=== PATIENT | male | born 1970 | race Caucasian/White ===

== ENCOUNTER 2020-05-29 19:17 | Emergency (ER) | payer OTHER ==
[2020-05-29 19:23] VITALS: BP 139/102; PULSE 96; TEMP 97.2; BMI 23.1
--- NOTE | 2020-05-29 19:35 | PDOC ---
History of Present Illness - General Chief Complaint: Laceration Stated Complaint: FELL HIT HEAD, LACERATION Time Seen by Provider: 05/29/20 19:31 History Source: Patient Exam Limitations: No Limitations - History of Present Illness Initial Comments: 05/29/20 21:13 This is a 49-year-old male brought in by EMS for evaluation of a head laceration. Patient said he was out walking his dog when he slipped and fell resulting in a laceration to his posterior occipital area. Patient denies loss of consciousness, headache, nausea, vomiting, confusion or any other complaints Allergies: as per nursing notes Past Medical History: none Social history: Lives with family. No smoking. No alcohol. No illicit drugs. Surgical history: None General: No fevers or chills, no weakness, no weight loss HEENT: No change in vision. No sore throat,. No ear pain, + scalp laceration CardioVascular: no chest discomfort. No shortness of breath Respiratory:No cough, or wheezing. Gastrointestinal: no nausea, vomiting, diarrhea or constipation, No rectal bleeding Genitourinary: No dysuria, hematuria, or frequency Musculoskeletal: No joint or muscle pain or swelling Neurologic: No headache, vertigo, dizziness or loss of consciousness Psychiatric: nor depression Skin: No rashes or easy bruising Endocrine: no increased thirst or abnormal weight change Allergic: no skin or latex allergy All other systems reviewed and normal GENERAL: The patient is awake, alert, and fully oriented, in no acute distress. HEENT:Head is normal with no signs of trauma. Eyes: Pupils equal, round and reactive to light, Ears, and Throat are normal. Neck is supple. No Lymphadenopathy. /Scalp: There is approximately a 3 cm laceration that is irregular in length on the posterior occipital area. There is minimal bleeding. EXTREMITIES:atraumatic, Normal range of motion, no edema. NEUROLOGICAL: Normal speech, normal gait. PSYCH: Normal mood, normal affect. SKIN: Warm, Dry, normal turgor, no rashes or lesions noted. Procedure note laceration repair: Laceration was cleaned And anesthetized with 1% lidocaine no epinephrine. Laceration was irrigated with 100 cc of normal saline using pressure with a Zerowet Laceration was closed with a total of 5 dima Bacitracin and sterile dressing was applied patient tolerated well Assessment and plan: This is a 49-year-old male with a scalp laceration that was closed with dima. Patient had no other complaints. Patient is otherwise healthy and discharged home. Past History - Medical History Allergies/Adverse Reactions: Allergies Allergy/AdvReac Type Severity Reaction Status Date / Time Penicillins Allergy Verified 05/29/20 19:19 Home Medications: Ambulatory Orders NK [No Known Home Medication] 05/29/20 COPD: No - Immunization History Immunization Up to Date: Yes - Psycho-Social/Smoking History Smoking History: Never smoked Have you smoked in the past 12 months: No Information on smoking cessation initiated: No - Substance Abuse Hx (Audit-C & DAST Scrn) How often the patient has a drink containing alcohol: Never Score: In Men: 4 or > Positive; In Women: 3 or > Positive: 0 Screen Result (Pos requires Nsg. Audit-10AR): Negative In the last yr the pt used illegal drug/Rx for NonMed reason: No Score: Yes response is considered Positive: 0 Screen Result (Positive result requires Nsg. DAST-10): Negative *Physical Exam - Vital Signs Last Vital Signs Temp Pulse Resp BP Pulse Ox 97.2 F L 96 H 16 139/102 H 96 05/29/20 19:20 05/29/20 19:20 05/29/20 19:20 05/29/20 19:20 05/29/20 19:20 Discharge - Discharge Information Problems reviewed: Yes Clinical Impression/Diagnosis: Laceration of scalp Qualifiers: Encounter type: initial encounter Qualified Code(s): S01.01XA - Laceration without foreign body of scalp, initial encounter Condition: Stable Disposition: HOME - Admission No - Follow up/Referral - Patient Discharge Instructions Patient Printed Discharge Instructions: DI for Closed Head Injury Additional Instructions: [place] can be removed here in the emergency department in 1 week. Read over and follow the head injury discharge instructions. You can clean the area once a day with some peroxide reapply some antibiotic ointment and a Band-Aid for the next 48 hours. Keep it dry do not shower or get it wet in the next 48 hours. Return to the emergency department immediately with ANY new, persistent or worsening symptoms. Continue any medications as previously prescribed by your physician. You should follow up with your primary doctor as soon as possible regarding today's emergency department visit. . Please make sure your doctor reviews the results of your emergency evaluation. Thank you for coming to the Emergency Department today for your care. It was a pleasure to see you today. Please note that your evaluation is INCOMPLETE until you follow-up with your doctor. - Post Discharge Activity
== END 2020-05-29 19:38 | disposition home or self-care (01) ==
LOC: FER 19:17
DX: S01.01XA Laceration without foreign body of scalp, initial encounter (principal)
CPT/HCPCS: 99282-25

== ENCOUNTER 2020-06-06 16:19 | Emergency (ER) | payer OTHER ==
--- NOTE | 2020-06-06 16:30 | PDOC ---
Suture Removal/Wound Check HPI - History of Present Illness Chief Complaint: Revisit,Wound Recheck Stated Complaint: staple removal Time Seen by Provider: 06/06/20 16:22 - Onset of Previous Treatment Comment:: Abhijit Mcbride is a 49yo man recently seen for scalp laceration repair after a mechanical fall who presents for removal of his scalp sutures. He states that he has been feeling significantly better since his original injury, and he denies any frequent headaches, vision changes, neurological deficits, vomiting, AMS, or other s/s of closed head injury. He additionally denies any swelling, bleeding, drainage, or significant pain at the wound site. Past History - Medical History Allergies/Adverse Reactions: Allergies Allergy/AdvReac Type Severity Reaction Status Date / Time Penicillins Allergy Verified 05/29/20 19:19 Home Medications: Ambulatory Orders NK [No Known Home Medication] 05/29/20 COPD: No - Immunization History Immunization Up to Date: Yes - Psycho-Social/Smoking History Smoking History: Never smoked Have you smoked in the past 12 months: No *Review of Systems - Review of Systems General: No fevers, no chills, no weight or appetite change, no malaise HEENT: No changes in vision, no changes in hearing, no headaches CV: No chest pain, no palpitations Pulm: No SOB, no cough, no wheezing GI: No nausea or vomiting Skin: No rash, no erythema Heme: No unusual bruising or bleeding Neuro: No syncope, no numbness/tingling, no focal weakness *Physical Exam - Physical Exam General: Comfortable, no acute distress HEENT: PERRL, EOMI, MMM, voice normal Cards: RRR Pulm: Comfortable on room air Abd: Soft, nontender, nondistended Skin: Normal color, no rashes or lesions. Dima in posterior scalp in place, laceration nearly healed with well-approximated edges, no surrounding erythema or edema. Neuro: A&Ox3, CN grossly intact, normal speech, motor/sensory grossly intact and symmetric Medical Decision Making - Medical Decision Making 06/06/20 16:26 Abhijit Mcbride is a 49yo man recently seen for scalp laceration repair after a mechanical fall who presents for removal of his scalp dima. - Wound appears to be healing appropriately - Dima removed - Home care, return precautions discussed with pt. Discussed with Dr Cha Monson PGY3 Discharge - Discharge Information Problems reviewed: Yes Clinical Impression/Diagnosis: Laceration of scalp Qualifiers: Encounter type: subsequent encounter Qualified Code(s): S01.01XD - Laceration without foreign body of scalp, subsequent encounter Condition: Stable Disposition: HOME - Admission No - Follow up/Referral - Patient Discharge Instructions Patient Printed Discharge Instructions: DI for Suture Removal Additional Instructions: Discharge Instructions: You were seen in the emergency department for removal of your laceration dima. Your wound appears to be healing well. You may see a small amount of bleeding at the site of your wound for the next day. This is normal. Seek immediate care for any worsening symptoms, severe or unusual headache, any neurological changes (one-sided weakness or numbness, changes to your speech or vision), any unusual sleepiness or confusion, or any other medical emergency. - Post Discharge Activity
[2020-06-06 16:33] VITALS: BP 122/79; PULSE 78; TEMP 98.6; BMI 23.1
--- NOTE | 2020-06-06 16:40 | PDOC ---
Attending Attestation - Resident Resident Name: IonaEsperanza - ED Attending Attestation I have performed the following: I have examined & evaluated the patient, The case was reviewed & discussed with the resident, I agree w/resident's findings & plan - HPI HPI: 06/06/20 16:37 49yo man recently seen for scalp laceration repair after a mechanical fall who presents for removal of his scalp sutures. He states that he has been feeling significantly better since his original injury, and he denies any frequent headaches, vision changes, neurological deficits, vomiting, AMS, or other s/s of closed head injury. He additionally denies any swelling, bleeding, drainage, or significant pain at the wound site. - Physicial Exam PE: 06/06/20 16:37 General: well appearing, awake and alert, GCS 15 HEENT: +occipital 2.5cm healed laceration with dima in place x5. EOMI, PERRL Resp: no respiratory distress CVS: pulses equal throughout, 2+ Neuro: alert and oriented appropriately, gait stable, no focal neuro deficits. CN II to XII grossly intact. speech clear skin: scalp laceration as documented MSK: RESENDEZ x4 - Medical Decision Making 06/06/20 16:39 Presenting to the ED with suture removal. s/p injury on 05/29/20 with placement of dima x 5 to the occiput. No fever or chills, redness, pain, swelling or discharge/malodor. Keeping the wound clean. Verbal consent was obtained. Wound well approximated, no erythema, induration, or discharge noted. 5 dima completely removed in a sterile fashion. Patient tolerated procedure well, no complications. Patient advised to look for and return for any signs of infection such as redness, swelling, discharge, or worsening pain. Discharge - Discharge Information Problems reviewed: Yes Clinical Impression/Diagnosis: Encounter for staple removal Laceration of scalp Qualifiers: Encounter type: subsequent encounter Qualified Code(s): S01.01XD - Laceration without foreign body of scalp, subsequent encounter Condition: Stable Disposition: HOME - Admission No - Follow up/Referral - Patient Discharge Instructions Patient Printed Discharge Instructions: DI for Suture Removal Additional Instructions: Discharge Instructions: You were seen in the emergency department for removal of your laceration dima. Your wound appears to be healing well. You may see a small amount of bleeding at the site of your wound for the next day. This is normal. Seek immediate care for any worsening symptoms, severe or unusual headache, any neurological changes (one-sided weakness or numbness, changes to your speech or vision), any unusual sleepiness or confusion, or any other medical emergency. - Post Discharge Activity
== END 2020-06-06 16:48 | disposition home or self-care (01) ==
LOC: FER 16:19
DX: Z48.02 Encounter for removal of sutures (principal)
CPT/HCPCS: 99281-25